=== PATIENT | male | born 1960 | race African-American/Black ===

== ENCOUNTER 2017-11-26 14:30 | Emergency (ER) | payer OTHER ==
[~2017-11-26] VITALS: Ht 172.7 cm; Wt 81.8 kg
[2017-11-26] MEDS ORDERED: LANTUS100 U/ML SQ (14:54)
[2017-11-26] MEDS ORDERED: CATAPRES 0.1MG0.1 MG PO (14:55)
[2017-11-26 15:34] LABS: BASO % 0.4 % (0.0-2.0); EOS # 0.2 (0.0-0.7); EOS % 3.1 % (0-4.0); GRAN # 2.2 (1.4-6.5); GRAN % 43.2 % (42.2-75.2); HEMATOCRIT 44.8 % (42.0-52.0); HEMOGLOBIN 15.7 g/dl (13.5-18.0); LYMPH # 2.3 (1.2-3.4); LYMPH % 44.5 % (20.0-51.0); MEAN CELL VOLUME 89 fl (80.0-100.0); MEAN CORPUSCULAR HEMOGLOBIN 31 pg (27.0-31.0); MEAN CORPUSCULAR HGB CONC 35 g/dl (33.0-37.0); MEAN PLATELET VOLUME 11.4 fl (7.4-10.4); MONO # 0.4 (0.1-0.6); MONO % 8.6 % (1.7-9.3); PLATELET COUNT 212 K/mm3 (130-400); RED BLOOD COUNT 5.05 M/mm3 (4.20-5.60); REDCELL DISTRIBUTION WIDTH-CV 13.1 % (11.5-14.5)
[2017-11-26 15:44] LABS: ALANINE AMINOTRANSFERASE 39 U/L (21-72); ALBUMIN 4.8 gm/dL (3.5-5.0); ALKALINE PHOSPHATASE 73 U/L (50-136); ANION GAP 19 mmol/L (7-16); AST,SGOT 24 U/L (15-37); BILIRUBIN,TOTAL 0.6 mg/dL (0.0-1.0); BLOOD UREA NITROGEN 18 mg/dL (9-20); CALCIUM 10.1 mg/dL (8.4-10.2); CARBON DIOXIDE 21 mmol/L (22-30); CHLORIDE 101 mmol/L (98-107); CREATININE, serum 1.34 mg/dL (0.66-1.25); GLUCOSE 162 mg/dL (74-106); POTASSIUM 4.1 mmol/L (3.4-5.0); SODIUM 141 mmol/L (137-145); TOTAL PROTEIN 10.2 gm/dL (6.4-8.2)
[2017-11-26 15:57] LABS: TROPONIN-I < 0.012 ng/mL (0.000-0.034)
[2017-11-26] MEDS ORDERED: HCTZ 25MG TAB25 MG PO (18:23)
[2017-11-26] MEDS ORDERED: NORVASC 5MG5 MG/TAB PO (18:23)
[2017-11-26] MEDS ORDERED: PREDNISONE10 MG PO (18:23)
[2017-11-26] MEDS ORDERED: LACRI-LUBE1 OIN OS (18:23)
[2017-11-26 18:55] VITALS: BP 164/108; PULSE 97; TEMP 99
== END 2017-11-26 18:44 | disposition home or self-care (01) ==
LOC: COL.ER 14:30
PROVIDERS: Emergency Medicine
DX: G51.0 Bell's palsy (principal); I16.0 Hypertensive urgency; E11.9 Type 2 diabetes mellitus without complications; I10 Essential (primary) hypertension; Z79.4 Long term (current) use of insulin
CPT/HCPCS: J7030; J7050; J7512